=== PATIENT | female | born 1940 | race Caucasian/White ===

== ENCOUNTER 2017-06-23 18:18 | Emergency (ER) | payer OTHER ==
[~2017-06-23] VITALS: Ht 157.5 cm; Wt 58.1 kg
[2017-06-23] MEDS ORDERED: DIPH,PERTUSS(ACELL),TET VAC/PF 0.5 ML IM-VACC ONE ×2 (19:00→19:25)
[2017-06-23] MEDS ORDERED: DABI150C PO (19:57)
[2017-06-23] MEDS ORDERED: POT25TAB PO (19:57)
[2017-06-23] MEDS ORDERED: ESTR0.5T PO (19:57)
[2017-06-23] MEDS ORDERED: GLIP5TAB10 PO (19:57)
[2017-06-23] MEDS ORDERED: METO1TAB6 PO (19:57)
[2017-06-23] MEDS ORDERED: SIMV40TA3 PO (19:57)
[2017-06-23] MEDS ORDERED: LEVO25TA4 PO (19:57)
[2017-06-23] MEDS ORDERED: TOLT4CAP PO (19:57)
[2017-06-23] MEDS ORDERED: RABE20TA18 PO (19:57)
[2017-06-23] MEDS ORDERED: HYDR-3240 PO (19:57)
[2017-06-23] MEDS ORDERED: FURO20TA3 PO (19:57)
[2017-06-23] MEDS ORDERED: BACITRACIN ZINC OINT 500U/GM, 0.9 GM ONE (20:32)
[2017-06-23 20:44] VITALS: BP 147/79
== END 2017-06-23 20:59 | disposition home or self-care (01) ==
LOC: ED 20:30
DX: S01.81XA Laceration without foreign body of other part of head, initial encounter (principal); E11.9 Type 2 diabetes mellitus without complications; I48.91 Unspecified atrial fibrillation; W01.0XXA Fall on same level from slipping, tripping and stumbling without subsequent striking against object, initial encounter; Y93.89 Activity, other specified; Y92.69 Other specified industrial and construction area as the place of occurrence of the external cause; Y99.0 Civilian activity done for income or pay; Z79.01 Long term (current) use of anticoagulants
CPT/HCPCS: 70450; 72125; 90471; 90715

== ENCOUNTER 2018-08-28 11:38 | Inpatient (IN) | payer BC, MEDICARE ==
[~2018-08-28] VITALS: Ht 162.6 cm; Wt 52.7 kg
[~2018-08-28 11:38] MED LIST: DABI150C PO; ESTR0.5T PO; FURO20TA3 PO; GLIP5TAB10 PO; HYDR-3240 PO; LEVO25TA4 PO; METO1TAB6 PO; POT25TAB PO; RABE20TA18 PO; SIMV40TA3 PO; TOLT4CAP PO
[2018-08-28] MEDS ORDERED: DABI150C PO (11:57)
[2018-08-28] MEDS ORDERED: IBUP-1222 PO (11:57)
[2018-08-28] MEDS ORDERED: QUET50TA PO (11:58)
[2018-08-28] MEDS ORDERED: DAPA10TA PO (11:59)
[2018-08-28] MEDS ORDERED: valacyclovir (12:00)
[2018-08-28] MEDS ORDERED: SODIUM CHLORIDE FLUSH 10ML SYR IVF ONE (12:00)
[2018-08-28 12:12] LABS: BASOPHILS % (AUTO) 0 % (0-1); EOSINOPHILS # (AUTO) 0.03 x10^3/uL (0-0.4); EOSINOPHILS % (AUTO) 1 % (1-7); LYMPHOCYTES # (AUTO) 0.68 x10^3/uL (1-3.4); LYMPHOCYTES % (AUTO) 12 % (22-44); MD NO; MEAN CORPUSCULAR HEMOGLOBIN 24.9 pg (27.0-34.8); MEAN CORPUSCULAR HGB CONC 31.3 g/dL (32.4-35.8); MEAN CORPUSCULAR VOLUME 79.7 fL (80-100); MEAN PLATELET VOLUME 8.4 fL (7.4-10.4); MONOCYTES # (AUTO) 0.25 x10^3/uL (0.2-0.8); MONOCYTES % (AUTO) 4 % (2-9); NEUTROPHILS # (AUTO) 4.66 x10^3/uL (1.8-6.8); NEUTROPHILS % (AUTO) 83 % (42-75); PLATELET COUNT 232 x10^3/uL (130-400); RED BLOOD COUNT 3.69 x10^6/uL (3.82-5.3); RED CELL DISTRIBUTION WIDTH 18.9 % (9.6-15.2)
[2018-08-28 12:23] LABS: ALANINE AMINOTRANSFERASE 17 U/L (12-78); ALBUMIN 2.9 g/dL (3.4-5.0); ANION GAP 9 mmol/L (5-15); CALCIUM 7.9 mg/dL (8.5-10.1); CHLORIDE 108 mmol/L (98-107)
[2018-08-28 12:25] LABS: SALICYLATE LEVEL < 1.7 mg/dL (2.8-20.0)
[2018-08-28 12:28] LABS: ACETAMINOPHEN 3 mcg/mL (10-30); ALKALINE PHOSPHATASE 81 U/L (45-117); BILIRUBIN,TOTAL 0.3 mg/dL (0.2-1.0); TOTAL PROTEIN 5.9 g/dL (6.4-8.2); TROPONIN I < 0.015 ng/mL (0.000-0.045)
[2018-08-28 12:39] LABS: INTERNATIONAL NORMALIZED RATIO 2.26 (0.93-1.1); PROTHROMBIN TIME 23.2 Seconds (9.6-11.5)
[2018-08-28 12:45] LABS: MICROSCOPIC AUTO
[2018-08-28 12:51] LABS: CULTURE INDICATED? YES
[2018-08-28] MEDS ORDERED: CEFTRIAXONE PMX 1GM/50ML 50 ML IVPB ONE (13:30)
[2018-08-28] MEDS ORDERED: CEFTRIAXONE PMX 1GM/50ML 50 ML ONE (13:39)
[2018-08-28] MEDS ORDERED: POTA10TA31 PO (14:25)
[2018-08-28] MEDS ORDERED: SODIUM CHLORIDE FLUSH 10ML SYR IVF PRN (14:30)
[2018-08-28] MEDS ORDERED: ONDANSETRON 2MG/ML, 2ML IVPush PRN (16:00)
[2018-08-28] MEDS: CEFTRIAXONE PMX 1GM/50ML 50 ML IV SCH (16:00)
[2018-08-28] MEDS ORDERED: LIDODERM 5% PATCH TD PRN (16:00)
[2018-08-28] MEDS ORDERED: DOCUSATE 100 MG CAPSULE PO PRN (16:00)
[2018-08-28] MEDS ORDERED: hydrALAzine 20 MG/ML, 1ML IVPush PRN (16:00)
[2018-08-28] MEDS ORDERED: ZOLPIDEM 5MG TABLET PO PRN (16:00)
[2018-08-28] MEDS: INSULIN LISPRO 100 UNITS/ML, PEN SQ-INSULIN SCH ×2 (16:00→20:50)
[2018-08-28] MEDS ORDERED: BISACODYL 10 MG SUPP PR PRN (16:00)
[2018-08-28 16:52] LABS: FREE T4 (FREE THYROXINE) 1.21 ng/dL (0.76-1.46); TROPONIN I < 0.015 ng/mL (0.000-0.045)
[2018-08-28 17:14] LABS: HEMOGLOBIN A1C 11.5 % (4.2-6.3)
[2018-08-28] MEDS: VALACYCLOVIR 500MG TABLET PO SCH (17:49)
[2018-08-28] MEDS ORDERED: FURO40TA6 PO (18:08)
[2018-08-28] MEDS ORDERED: ESTR1TAB15 PO (18:09)
[2018-08-28] MEDS ORDERED: GLIP5TAB10 PO (18:10)
[2018-08-28] MEDS ORDERED: METO50TA82 PO (18:10)
[2018-08-28] MEDS ORDERED: LEVOTHYROXINE (18:13)
[2018-08-28] MEDS ORDERED: SIMV40TA3 PO (18:14)
[2018-08-28] MEDS ORDERED: SITA1TAB5 PO (18:16)
[2018-08-28] MEDS ORDERED: POTA10CA PO (18:18)
[2018-08-28 20:00] VITALS: BP 106/63
[2018-08-28] MEDS: SODIUM CHLORIDE 0.9% 1,000 ML IV SCH (20:51)
[2018-08-28] MEDS ORDERED: RABE20TA18 PO (20:59)
[2018-08-28 21:41] LABS: TROPONIN I < 0.015 ng/mL (0.000-0.045)
[2018-08-29 01:50] VITALS: BP 115/68
[2018-08-29] MEDS: VALACYCLOVIR 500MG TABLET PO SCH ×3 (02:00→16:26)
[2018-08-29] MEDS: IBUPROFEN 600 MG TABLET PO PRN ×2 (03:27→19:28)
[2018-08-29] MEDS: SODIUM CHLORIDE 0.9% 1,000 ML IV SCH ×2 (06:12→16:25)
[2018-08-29 06:40] LABS: BASOPHILS # (AUTO) 0.03 x10^3/uL (0-0.1); BASOPHILS % (AUTO) 1 % (0-1); EOSINOPHILS # (AUTO) 0.22 x10^3/uL (0-0.4); EOSINOPHILS % (AUTO) 4 % (1-7); LYMPHOCYTES # (AUTO) 1.44 x10^3/uL (1-3.4); LYMPHOCYTES % (AUTO) 24 % (22-44); MD NO; MEAN CORPUSCULAR HEMOGLOBIN 25.8 pg (27.0-34.8); MEAN CORPUSCULAR HGB CONC 32.7 g/dL (32.4-35.8); MEAN CORPUSCULAR VOLUME 79.1 fL (80-100); MEAN PLATELET VOLUME 8.7 fL (7.4-10.4); MONOCYTES # (AUTO) 0.55 x10^3/uL (0.2-0.8); MONOCYTES % (AUTO) 9 % (2-9); NEUTROPHILS % (AUTO) 62 % (42-75); PLATELET COUNT 241 x10^3/uL (130-400); RED BLOOD COUNT 3.55 x10^6/uL (3.82-5.3); RED CELL DISTRIBUTION WIDTH 18.5 % (9.6-15.2)
[2018-08-29 06:47] LABS: CHLORIDE 113 mmol/L (98-107)
[2018-08-29 06:52] LABS: ANION GAP 8 mmol/L (5-15); CALCIUM 8.2 mg/dL (8.5-10.1); CREATININE 1.06 mg/dL (0.55-1.02)
[2018-08-29 08:47] VITALS: BP 113/71
[2018-08-29] MEDS ORDERED: QUETIAPINE 25MG TABLET PO SCH ×2 (09:00→21:00)
[2018-08-29] MEDS: DABIGATRAN 75 MG CAPSULE PO SCH (09:00)
[2018-08-29] MEDS: (Dapagliflozin Propanediol (Farxiga) 10 MG) PO SCH (09:00)
[2018-08-29] MEDS: TOLTERODINE LA 4MG CAP.ER.24H PO SCH (09:03)
[2018-08-29] MEDS: INSULIN LISPRO 100 UNITS/ML, PEN SQ-INSULIN SCH ×4 (09:05→20:19)
[2018-08-29 12:15] VITALS: BP 104/60
[2018-08-29] MEDS: CEFTRIAXONE PMX 1GM/50ML 50 ML IV SCH (16:25)
[2018-08-29 20:37] VITALS: BP 121/75
[2018-08-30 01:22] VITALS: BP 117/72
[2018-08-30] MEDS: VALACYCLOVIR 500MG TABLET PO SCH ×2 (02:50→10:00)
[2018-08-30 05:07] LABS: BASOPHILS # (AUTO) 0.02 x10^3/uL (0-0.1); BASOPHILS % (AUTO) 0 % (0-1); EOSINOPHILS # (AUTO) 0.29 x10^3/uL (0-0.4); EOSINOPHILS % (AUTO) 6 % (1-7); LYMPHOCYTES # (AUTO) 1.47 x10^3/uL (1-3.4); LYMPHOCYTES % (AUTO) 29 % (22-44); MD NO; MEAN CORPUSCULAR HEMOGLOBIN 25.6 pg (27.0-34.8); MEAN CORPUSCULAR HGB CONC 32.3 g/dL (32.4-35.8); MEAN CORPUSCULAR VOLUME 79.2 fL (80-100); MEAN PLATELET VOLUME 8.3 fL (7.4-10.4); MONOCYTES # (AUTO) 0.59 x10^3/uL (0.2-0.8); MONOCYTES % (AUTO) 11 % (2-9); NEUTROPHILS # (AUTO) 2.77 x10^3/uL (1.8-6.8); NEUTROPHILS % (AUTO) 54 % (42-75); PLATELET COUNT 235 x10^3/uL (130-400); RED BLOOD COUNT 3.51 x10^6/uL (3.82-5.3); RED CELL DISTRIBUTION WIDTH 18.8 % (9.6-15.2)
[2018-08-30 05:16] LABS: ANION GAP 7 mmol/L (5-15); CALCIUM 7.8 mg/dL (8.5-10.1); CHLORIDE 115 mmol/L (98-107)
[2018-08-30] MEDS: SODIUM CHLORIDE 0.9% 1,000 ML IV SCH (05:36)
[2018-08-30 07:21] VITALS: BP 123/74
[2018-08-30] MEDS: INSULIN LISPRO 100 UNITS/ML, PEN SQ-INSULIN SCH ×2 (08:40→11:58)
[2018-08-30] MEDS: TOLTERODINE LA 4MG CAP.ER.24H PO SCH (08:40)
[2018-08-30] MEDS: (Dapagliflozin Propanediol (Farxiga) 10 MG) PO SCH (08:41)
[2018-08-30] MEDS: DABIGATRAN 75 MG CAPSULE PO SCH (08:41)
[2018-08-30] MEDS: IBUPROFEN 600 MG TABLET PO PRN (10:25)
[2018-08-30] MEDS ORDERED: CEPH-368 PO (12:27)
[2018-08-30] MEDS ORDERED: VALA500T PO (12:27)
[2018-08-30 13:32] VITALS: BP 112/73
== END 2018-08-30 15:22 | disposition home health service (06) | DRG 690 ==
LOC: ED 14:48 → EDIP 15:26 → 4WST 19:40
PROVIDERS: ADMIT Hospitalist; ATTEND Hospitalist
DX: N30.90 Cystitis, unspecified without hematuria (principal); N17.9 Acute kidney failure, unspecified; I48.91 Unspecified atrial fibrillation; E03.9 Hypothyroidism, unspecified; I10 Essential (primary) hypertension; E11.9 Type 2 diabetes mellitus without complications; B02.9 Zoster without complications; E86.0 Dehydration; Z95.818 Presence of other cardiac implants and grafts; Z90.710 Acquired absence of both cervix and uterus; Z83.3 Family history of diabetes mellitus; Z79.4 Long term (current) use of insulin; Z88.8 Allergy status to other drugs, medicaments and biological substances
CPT/HCPCS: 36415; 70450; 71045; 80048; 80053; 80307; 80329; 81001; 82140; 82962; 83036; 83605; 84439; 84443; 84484; 85025; 85610; 85730; 87040; 87077; 87086; 87186; 93005; 96365; 99285; G0378; J0696; G0480; J1815; J7030

== ENCOUNTER 2019-09-19 19:46 | Emergency (ER) | payer BC, MEDICARE ==
[~2019-09-19] VITALS: Ht 165.1 cm; Wt 50.0 kg
[~2019-09-19 19:46] MED LIST changes: +CEPH-368 PO; +DAPA10TA PO; +ESTR1TAB15 PO; +FURO40TA6 PO; +IBUP-1222 PO; +LEVOTHYROXINE; +METO50TA82 PO; +POTA10CA PO; +POTA10TA31 PO; +QUET50TA PO; +SIMV40TA20 PO; -SIMV40TA3 PO; +SITA1TAB5 PO; +VALA500T8 PO; +valacyclovir
[2019-09-19 19:56] VITALS: BP 139/78
--- NOTE | 2019-09-19 21:30 | NUR ---
REPORTS LEFT HIP PAIN SINCE WEDNESDAY; SENT HERE BY [facility]. DENIES INJURY; X-RAYS AT [facility].
[2019-09-19] MEDS ORDERED: HYDROcodone/APAP 5/325 TABLET ONE (21:45)
[2019-09-19] MEDS ORDERED: HYDROcodone/APAP 5/325 TABLET PO ONE (22:00)
== END 2019-09-19 22:33 | disposition home or self-care (01) ==
LOC: ED 20:30
DX: S32.511A Fracture of superior rim of right pubis, initial encounter for closed fracture (principal); S39.012A Strain of muscle, fascia and tendon of lower back, initial encounter; M25.552 Pain in left hip; I10 Essential (primary) hypertension; E11.9 Type 2 diabetes mellitus without complications; I48.91 Unspecified atrial fibrillation; W18.30XA Fall on same level, unspecified, initial encounter; Y93.89 Activity, other specified; Y92.89 Other specified places as the place of occurrence of the external cause; Y99.8 Other external cause status
CPT/HCPCS: 72192; 99284

== ENCOUNTER 2019-10-05 16:16 | Emergency (ER) | payer BC, MEDICARE ==
[~2019-10-05] VITALS: Ht 165.1 cm; Wt 51.0 kg
[~2019-10-05 16:16] MED LIST changes: -SIMV40TA20 PO; +SIMV40TA3 PO; +VALA500T PO; -VALA500T8 PO
--- NOTE | 2019-10-05 16:45 | NUR ---
pt in xray at this time.
[2019-10-05] MEDS ORDERED: HYDROcodone/APAP 5/325 TABLET ONE (16:49)
[2019-10-05] MEDS ORDERED: HYDROcodone/APAP 5/325 TABLET PO ONE (17:00)
--- NOTE | 2019-10-05 17:10 | NUR ---
FIRST CONTACT WITH PT. PT STATES "I STEPPED IN SOME LOTION AND SLIPPED. MY TAIL BONE HURTS. IT HAPPENED LAST NIGHT." NO LOC. PT'S AOX4. RESPS EVEN AND UNLABORED. BP/SPO2 MONITORS IN PLACE. CALL LIGHT WITHIN REACH.
--- NOTE | 2019-10-05 17:40 | NUR ---
PT MEDICATED PER EMAR. PT TOLERATED WELL.
[2019-10-05 18:12] VITALS: BP 94/62
--- NOTE | 2019-10-05 18:21 | NUR ---
PT'S FAMILY CONCERNED ABOUT LOW SPO2. EDMD NOTIFIED. EDMD AT BEDSIDE TO EXPLAIN AT THIS TIME.
--- NOTE | 2019-10-05 18:59 | NUR ---
REPORT FROM [facility] AT THIS TIME. ASSUMING CARE OF PT. PT O2 SENSOR REPOSITIONED, PT O2 SAT 96% RA.
--- NOTE | 2019-10-05 19:17 | NUR ---
PT AMB WITH STEADY GAIT NO ASSIST REQUIRED, PT O2 SAT 96-97%
--- NOTE | 2019-10-05 19:40 | NUR ---
Patient/Caregiver given discharge instructions and they have confirmed that they understand the instructions. Patient ambulatory with steady gait.
== END 2019-10-05 19:53 | disposition home or self-care (01) ==
LOC: ED 18:02
DX: S39.012A Strain of muscle, fascia and tendon of lower back, initial encounter (principal); I10 Essential (primary) hypertension; E11.9 Type 2 diabetes mellitus without complications; X58.XXXA Exposure to other specified factors, initial encounter; Y93.89 Activity, other specified; Y92.89 Other specified places as the place of occurrence of the external cause; Y99.8 Other external cause status
CPT/HCPCS: 72110; 72220; 99283